=== PATIENT | female | born 1990 | race Caucasian/White ===

== ENCOUNTER 2016-08-30 21:54 | Emergency (ER) | payer OTHER ==
[~2016-08-30] VITALS: Ht 167.6 cm; Wt 65.8 kg
[2016-08-30 22:50] LABS: BASO # 0.1 x10^3/uL (0.0-0.2); BASO % 1 % (0-3); EOS % 2 % (0-3); HEMATOCRIT 43.2 % (36.0-47.0); HEMOGLOBIN 14.1 g/dL (12.0-15.5); LYMPH # 3.1 x10^3/uL (1.0-4.8); LYMPH % 30 % (24-48); MEAN CORPUSCULAR HEMOGLOBIN 28 pg (25-35); MEAN CORPUSCULAR HGB CONC 33 g/dL (31-37); MEAN CORPUSCULAR VOLUME 86 fL (79-100); MONO % 6 % (0-9); NEUT % 60 % (31-73); PLATELET COUNT 294 x10^3/uL (140-400); RED BLOOD COUNT 5.04 x10^6/uL (3.50-5.40); RED CELL DISTRIBUTION WIDTH 13.2 % (11.5-14.5); WHITE BLOOD COUNT 10.2 x10^3/uL (4.0-11.0)
[2016-08-30 22:51] LABS: BILIRUBIN,URINE NEGATIVE (NEG); GLUCOSE,URINE NEGATIVE (NEG); NITRITE,URINE NEGATIVE (NEG); PROTEIN,URINE NEGATIVE (NEG-TRACE); UROBILINOGEN,URINE 0.2 mg/dL (0.2 mg/dL)
[2016-08-30 22:57] LABS: BACTERIA,URINE FEW /HPF (0-FEW); RBC,URINE OCC /HPF (0-2); SQUAMOUS EPITHELIAL CELL,UR MOD /LPF; WBC,URINE OCC /HPF (0-4)
[2016-08-30 23:03] LABS: CREATININE 0.8 mg/dL (0.6-1.0); GFR 86.7; POTASSIUM 3.7 mmol/L (3.5-5.1)
--- NOTE | 2016-08-30 23:09 | PHYS DOC ---
Past Medical History Past Medical History: No Pertinent History, Other Additional Past Medical Histor: PCOS Past Surgical History: Other Additional Past Surgical Histo: right inguinal repair, LAP OF OVERIES, HERNIA, LEEP Alcohol Use: Occasionally Drug Use: None Adult General Chief Complaint Chief Complaint: MULTIPLE COMPLAINTS HPI HPI Patient is a 26 year old female who presents with increasing headache for the past 3 days and complaining of increased forgetfulness. 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 Patient states she has no history of migraines. Patient states she has pain to her frontal sinuses. Patient denies any fevers. Patient denies vision changes. Patient denies any nausea/vomiting/diarrhea. Patient denies any chest pain or shortness of breath. Patient has no other complaints. Review of Systems Review of Systems GEN: Denies fevers, chills, sweats HEENT: Denies blurred vision, sore throat CV: Denies chest pain RESP: Denies shortness of air, cough GI: Denies n/v/d NEURO: Headache MSK: Denies weakness, joint pain/swelling Current Medications Current Medications Current Medications Medications (Trade) Dose Ordered Sig/Carli Start Time Stop Time Status Last Admin Dose Admin Info (Do NOT chart on this entry -- for MONITORING) 1 each PRN DAILY PRN 08/30/16 23:30 09/01/16 23:29 Iohexol (Omnipaque 350 Mg/ml) 100 ml STK-MED ONCE 08/31/16 00:09 08/31/16 00:10 DC Allergies Allergies Allergies Coded Allergies Type Severity Reaction Last Updated Verified No Known Drug Allergies 11/18/13 No Physical Exam Physical Exam GEN.: No apparent distress. Alert and oriented. HEENT: Head is normocephalic, atraumatic NECK: Supple. LUNGS: CTAB. HEART: RRR, S1, S2 present. Peripheral pulses intact ABDOMEN: Soft, nontender. Positive bowel sounds. EXTREMITIES: Without any cyanosis. NEUROLOGIC: Normal speech, normal tone, cranial nerves II through XII are grossly intact without any focal neurologic deficits PSYCHIATRIC: Normal affect, normal mood. SKIN: No ulcerations Current Patient Data Vital Signs Vital Signs Date Time Temp Pulse Resp B/P (MAP) Pulse Ox O2 Delivery O2 Flow Rate FiO2 08/31/16 00:42 85 115/76 (89) 99 Room Air 08/30/16 22:13 98.4 18 98.4 Lab Values Laboratory Tests Test 08/30/16 21:52 08/30/16 22:35 08/30/16 22:40 POC Urine HCG, Qualitative Hcg negative (Negative) Urine Collection Type Unknown Urine Color Yellow Urine Clarity Clear Urine pH 6.0 Urine Specific [place] 1.010 Urine Protein Negative mg/dL (NEG-TRACE) Urine Glucose (UA) Negative mg/dL (NEG) Urine Ketones (Stick) Negative mg/dL (NEG) Urine Blood Negative (NEG) Urine Nitrite Negative (NEG) Urine Bilirubin Negative (NEG) Urine Urobilinogen Dipstick 0.2 mg/dL (0.2 mg/dL) Urine Leukocyte Esterase Negative (NEG) Urine RBC Occ /HPF (0-2) Urine WBC Occ /HPF (0-4) Urine Squamous Epithelial Cells Mod /LPF Urine Bacteria Few /HPF (0-FEW) White Blood Count 10.2 x10^3/uL (4.0-11.0) Red Blood Count 5.04 x10^6/uL (3.50-5.40) Hemoglobin 14.1 g/dL (12.0-15.5) Hematocrit 43.2 % (36.0-47.0) Mean Corpuscular Volume 86 fL (79-100) Mean Corpuscular Hemoglobin 28 pg (25-35) Mean Corpuscular Hemoglobin Concent 33 g/dL (31-37) Red Cell Distribution Width 13.2 % (11.5-14.5) Platelet Count 294 x10^3/uL (140-400) Neutrophils (%) (Auto) 60 % (31-73) Lymphocytes (%) (Auto) 30 % (24-48) Monocytes (%) (Auto) 6 % (0-9) Eosinophils (%) (Auto) 2 % (0-3) Basophils (%) (Auto) 1 % (0-3) Neutrophils # (Auto) 6.1 x10^3uL (1.8-7.7) Lymphocytes # (Auto) 3.1 x10^3/uL (1.0-4.8) Monocytes # (Auto) 0.7 x10^3/uL (0.0-1.1) Eosinophils # (Auto) 0.2 x10^3/uL (0.0-0.7) Basophils # (Auto) 0.1 x10^3/uL (0.0-0.2) Sodium Level 144 mmol/L (136-145) Potassium Level 3.7 mmol/L (3.5-5.1) Chloride Level 104 mmol/L (98-107) Carbon Dioxide Level 30 mmol/L (21-32) Anion Gap 10 (6-14) Blood Urea Nitrogen 13 mg/dL (7-20) Creatinine 0.8 mg/dL (0.6-1.0) Estimated GFR (Cockcroft-Gault) 86.7 Glucose Level 83 mg/dL (70-99) Calcium Level 9.0 mg/dL (8.5-10.1) Laboratory Tests 08/30/16 22:40 Laboratory Tests 08/30/16 22:40 EKG EKG 2244: EKG shows normal sinus rhythm rate of 71 no STEMI [] Radiology/Procedures Radiology/Procedures EXAM: 1. CTA HEAD WITH AND WITHOUT CONTRAST. 2. CTA NECK WITH AND WITHOUT CONTRAST. HISTORY: Headache, memory loss. TECHNIQUE: Computed tomographic angiography of the head and neck was performed before and after the intravenous ministration of 75 mL Omnipaque 350. Three-dimensional reconstructions were also performed. COMPARISON: None. FINDINGS: Angiographic findings: The aortic arch has a typical branching pattern. There is no arch vessel stenosis. Both common carotid arteries are patent without stenosis. Both internal carotid arteries are patent without stenosis. The external carotid systems are patent. There is a linear filling defect traversing the left vertebral artery at C2 as seen on axial image 179. This is reproduced on coronal reconstructions and is not definitively an artifact. There is no stenosis throughout the vertebral arteries elsewhere. The basilar artery is patent. Both posterior cerebral arteries are patent. The posterior communicating arteries are visualized. The intracranial internal carotid arteries demonstrate no stenosis. The middle cerebral arteries are patent. The anterior cerebral arteries are patent. The anterior communicating artery is visualized. Nonangiographic findings: There is no intracranial hemorrhage. Isabel-white differentiation is preserved. The ventricles are normal in size and position. There is a small mucus retention cyst in the right maxillary sinus. The orbits are unremarkable. The temporal bones are unremarkable. Bone windows reveal no suspicious lesions. The lung apices demonstrate no acute abnormality. The parotid glands and submandibular glands are unremarkable. The thyroid gland demonstrates no suspicious lesions. There are no laryngeal or pharyngeal masses. There are no pathologically enlarged lymph nodes. IMPRESSION: 1. A linear filling defect traversing the left distal cervical vertebral artery may be an artifact, but a short segment dissection cannot be excluded. There is no clear stenosis. MRA or a follow-up study could assess if this is a true finding or an artifact if there is persistent concern. 2. No intracranial stenosis or aneurysm. These findings were discussed with Dr. Szymanski by Anand Zamora at the time of the study.[] Course & Med Decision Making Course & Med Decision Making Pertinent Labs and Imaging studies reviewed. (See chart for details) ED course: Patient was seen and examined in the emergency room CBC, CMP, CT angiogram of the head and neck were ordered 0030: Discussed CT results with radiologist who believes there is artifact however cannot rule out a vertebral artery dissection 0040: Discuss CT results with the patient and plan to admit for further evaluation for the possible vertebral artery dissection 0119: Discussed CC/HP/PMH with Mahogany CHOWDARY and recommends to have Dr. Davison look at the scan 0132: Discussed CC/HP/PMH with Dr. Davison and recommends transfer for an arteriogram 0143: Discussed case with transfer center will call back 0255: Discussed CC/HP/PMH with Dr. Dewitt and recommends admit and patient will be transferred to via EMS [] Dragon Disclaimer Dragon Disclaimer This electronic medical record was generated, in whole or in part, using a voice recognition dictation system. Departure Departure Impression: Primary Impression: Headache Additional Impression: Vertebral artery dissection Disposition: 02 TRANSFER [facility] Condition: STABLE Referrals: UNKNOWN PCP NAME (PCP) Problem Qualifiers BARBARA SZYMANSKI DO Aug 30, 2016 23:09
[2016-08-30] MEDS ORDERED: CONTRAST GIVEN MC PRN (23:30)
[2016-08-30] MEDS ORDERED: IOHEXOL 350 MG/ML 75ML VIAL. IV ONE (23:30)
[2016-08-31] MEDS ORDERED: IOHEXOL 350 MG/ML 100 ML VIAL. ONE (00:09)
--- NOTE | 2016-08-31 00:29 | RAD ---
EXAM: 1. CTA HEAD WITH AND WITHOUT CONTRAST. 2. CTA NECK WITH AND WITHOUT CONTRAST. HISTORY: Headache, memory loss. TECHNIQUE: Computed tomographic angiography of the head and neck was performed before and after the intravenous ministration of 75 mL Omnipaque 350. Three-dimensional reconstructions were also performed. COMPARISON: None. FINDINGS: Angiographic findings: The aortic arch has a typical branching pattern. There is no arch vessel stenosis. Both common carotid arteries are patent without stenosis. Both internal carotid arteries are patent without stenosis. The external carotid systems are patent. There is a linear filling defect traversing the left vertebral artery at C2 as seen on axial image 179. This is reproduced on coronal reconstructions and is not definitively an artifact. There is no stenosis throughout the vertebral arteries elsewhere. The basilar artery is patent. Both posterior cerebral arteries are patent. The posterior communicating arteries are visualized. The intracranial internal carotid arteries demonstrate no stenosis. The middle cerebral arteries are patent. The anterior cerebral arteries are patent. The anterior communicating artery is visualized. Nonangiographic findings: There is no intracranial hemorrhage. Isabel-white differentiation is preserved. The ventricles are normal in size and position. There is a small mucus retention cyst in the right maxillary sinus. The orbits are unremarkable. The temporal bones are unremarkable. Bone windows reveal no suspicious lesions. The lung apices demonstrate no acute abnormality. The parotid glands and submandibular glands are unremarkable. The thyroid gland demonstrates no suspicious lesions. There are no laryngeal or pharyngeal masses. There are no pathologically enlarged lymph nodes. IMPRESSION: 1. A linear filling defect traversing the left distal cervical vertebral artery may be an artifact, but a short segment dissection cannot be excluded. There is no clear stenosis. MRA or a follow-up study could assess if this is a true finding or an artifact if there is persistent concern. 2. No intracranial stenosis or aneurysm. These findings were discussed with Dr. Beasley by Anand Zamora at the time of the study. PQRS Compliance Statement - Stenosis calculations for CT, MR and conventional angiography are based upon measurement of the distal ICA diameter in accordance with the NASCET methodology. Stenosis calculations for carotid ultrasound studies are derived from validated velocity criteria which are known to correlate with the NASCET methodology. *One or more of the following individualized dose reduction techniques were utilized for this examination: 1. Automated exposure control. 2. Adjustment of the mA and/or kV according to patient size. 3. Use of iterative reconstruction technique. Electronically signed by: Vlad Zamora MD (08/31/2016 12:26 AM) [facility]
[2016-08-31] MEDS ORDERED: ONDANSETRON PF 4 MG/2 ML VIAL. IV ONE (02:30)
[2016-08-31 03:50] VITALS: BP 108/70
--- NOTE | 2016-08-31 08:20 | EKG ---
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
== END 2016-08-31 03:57 | disposition short-term general hospital (02) ==
LOC: ER 21:54 → UNDOADMOB 08-31 00:50 → 5 SOUTH 08-31 00:50 → ER 08-31 03:57
DX: R51 Headache (principal); I77.74 Dissection of vertebral artery
CPT/HCPCS: 36415; 70496; 70498; 80048; 81001; 81025; 85027; 93005; 96374; 99285; J2405; Q9967